=== PATIENT | male | born 1955 | race Caucasian/White ===

== ENCOUNTER 2016-12-25 03:07 | Inpatient (IN) | payer OTHER ==
--- NOTE | ~2016-12-25 | PA ---
Unit #: [id number] #: [id number] Patient: CALIN HAMLIN [id number] [facility] [address] [place] [address] [id number] MR#: [id number] NAME: CALIN HAMLIN ROOM: P261 Age: 61 Sex: M Admission Date: 12/25/2016 : 1955 Date of Assessment: 12/25/2016 Attending Physician: Arlyn Wetzel M.D. Admitting Physician: Arlyn Weztel M.D. Primary Care Physician: Primary Care Physician No PSYCHIATRIC ASSESSMENT DATE OF SERVICE 12/25/2016. IDENTIFYING DATA Mr. Hamlin is a 61-year-old white male, who is resident of [place], [place], and was transferred to from [facility] and was accompanied by his sister, Irina Hamlin, was initially taken to the [facility] in [place], [place]. CHIEF COMPLAINT Suicidal thoughts. HISTORY OF PRESENT ILLNESS Mr. Hamlin is a 61-year-old white male, who was transferred to us from the [facility], where he presented with suicidal thoughts that has worsened over the past 2 days and stated that he has chronic back pain, long history of depression, and stated that just moved from [facility] 3 months ago and stated that he is currently from his , stated that he found out daughter was recently diagnosed with cancer that he feels hopeless and does report increasing depression, anxiety, irritability, restlessness, feelings of hopelessness and helplessness, and suicidal ideations with a plan to overdose. SUBSTANCE ABUSE HISTORY The patient reports history of opioid, alcohol, and sedative abuse, and apparently has been getting some prescriptions for benzodiazepines as well. PAST PSYCHIATRIC HISTORY The patient has had history of inpatient psychiatric hospitalization in [place] as well as at the [facility] and has been diagnosed and treated for mood disorder. He is currently on combination of psychotropic medication, but does not appear to be showing a therapeutic response to the medication. PAST MEDICAL HISTORY Chronic back pain. ALLERGIES No known medication allergies. PERSONAL AND SOCIAL HISTORY A 61-year-old white male, who reports that he is and unemployed and recently moved to [place] from [facility] and reports having fairly decent social support system. Unit #: [id number] #: [id number] Patient: CALIN HAMLIN MENTAL STATUS EXAMINATION Middle-aged white male who was casually dressed with fair personal hygiene, appears to be in no acute distress or discomfort. He was awake and alert on interaction with intact orientation to time, place, and person. His mood was anxious and depressed with a congruent affect. His speech was slow and goal directed. His thought processes were disorganized with some looseness of associations and flight of ideas and suicidal ideations. His insight and judgment remain significantly impaired. DIAGNOSTIC IMPRESSION Psychiatric: Major depressive disorder, recurrent, moderate, without psychotic features. Medical: Chronic back pain. Stressors: Moderate psychosocial stressors. TREATMENT PLAN 1. The patient has presented with history of mood disorder and has been decompensating and will need inpatient hospitalization for safety and stabilization. We will start him back on his home medications. We will adjust the medications and monitor response and we will monitor his response and make further adjustments as needed. 2. Supportive therapy was provided to the patient. 3. Safe, structured, and nourishing environment will be provided. ESTIMATED LENGTH OF STAY 5 to 7 days. ABILITY TO HELP SELF Limited. WILLINGNESS TO HELP SELF The patient appears to be willing to help self. STRENGTHS 1. Communicative. 2. Cooperative. PROBLEMS 1. Chronic dysphoric symptoms. 2. Poor social support system. DISCHARGE CRITERIA This will be contingent upon the patient's ability to show resolution of his depression and anxiety and his ability to stay safe to himself, particularly after discharge from the hospital. Dictated by... Macie Santoro/nazia TD: 12/25/2016 08:39 JOB #: [id number] Unit #: [id number] #: [id number] Patient: CALIN HAMLIN PSYCHIATRIC ASSESSMENT X Arlyn Wetzel MD X PSYCHIATRIC ASSESSMENT
--- NOTE | ~2016-12-25 | PN ---
Unit #: [id number] #: [id number] Patient: CALNI HAMLIN [id number] [facility] [address] [place] [address] [id number] MR#: [id number] NAME: CALIN HAMLIN [facility]OM: [facility] Age: 61 Sex: M Admission Date: 12/25/2016 : 1955 Attending Physician: Arlyn Wetzel M.D. Admitting Physician: Arlyn Wetzel M.D. Primary Care Physician: Primary Care Physician Fabi DILLON PROGRESS NOTES DATE OF SERVICE: 12/27/2016 SUBJECTIVE Mr. Hamlin is a 61-year-old white male who was seen today and chart was reviewed, and case was discussed with the staff. He has been anxious, withdrawn, though has not shown any agitation or irritability and has been cooperative with treatment recommendations as he has been taking the medications and tolerating them fairly well with no reported side effects. MENTAL STATUS EXAMINATION Middle-aged white male who was casually dressed with fair personal hygiene, appears to be in no acute distress or discomfort. He was awake and alert on interaction with intact orientation. His mood was anxious with a congruent affect. His speech was slow and goal directed. He denies any suicidal or homicidal ideations. His insight and judgment remain slightly impaired. TREATMENT PLAN 1. We will continue him on his current medications and treatment protocol. We will monitor his response to medications and make further adjustments as needed. 2. We will continue to follow up. Dictated by... Macie Santoro/nazia TD: 12/28/2016 07:07 JOB #: [id number] [facility] PROGRESS NOTES X Arlyn Wetzel MD PROGRESS NOTE
--- NOTE | ~2016-12-25 | PN ---
Unit #: [id number] #: [id number] Patient: CALIN HAMLIN [id number] [facility] [address] [place] [address] [id number] I MR#: [id number] NAME: CALIN HAMLIN ROOM: [facility] Age: 61 Sex: M Admission Date: 12/25/2016 : 1955 Attending Physician: Arlyn Wetzel M.D. Admitting Physician: Arlyn Wetzel M.D. Primary Care Physician: Primary Care Physician Fabi HINTON NOTES DATE OF SERVICE: 12/26/2016 SUBJECTIVE Mr. Hamlin is a 61-year-old white male who was seen today and chart was reviewed and case was discussed with the staff. He has been anxious, withdrawn, though has not shown any agitation or irritability and has been cooperative with treatment recommendation as he has been taking the medications and tolerating them fairly well. MENTAL STATUS EXAMINATION An elderly white male who was casually dressed with fair personal hygiene and appears to be in no acute distress or discomfort. He was awake and alert on interaction with intact orientation. His mood was anxious with a congruent affect. He denies any suicidal or homicidal ideations, and also denies any auditory or visual hallucinations. His insight and judgment remain slightly impaired. TREATMENT PLAN 1. We will continue him on his current medications and treatment protocol. We will monitor his response and make further adjustments as needed. 2. We will continue to follow up. Dictated by... Macie Santoro/nazia TD: 12/27/2016 05:13 JOB #: [id number] [facility] PROGRESS NOTES X Arlyn Wetzel MD PROGRESS NOTE
--- NOTE | ~2016-12-25 | HP ---
Unit #: [id number] #: [id number] Patient: AVERY JOYCE [id number] [place] [address] [id number] I MR#: [id number] NAME: AVERY JOYCE ROOM: [facility] Age: 61 Sex: M Admission Date: 12/25/2016 : 1955 Attending Physician: Arlyn Wetzel M.D. Admitting Physician: Arlyn Wetzel M.D. Primary Care Physician: Primary Care Physician No HISTORY AND PHYSICAL HISTORY OF PRESENT ILLNESS Avery is a 61 year old admitted to 2 [facility] with depression and verbalizing wanting to hurt himself. PAST MEDICAL HISTORY 1. Obesity 2. Degenerative disc disease a. Chronic pain. 3. History of polysubstance abuse PAST SURGICAL HISTORY Low back pain ALLERGIES No known drug allergies. SOCIAL HISTORY He does not smoke. Has a history of alcohol abuse. Denies anything currently. He also gives a history of poly illicit substance abuse. FAMILY HISTORY Medically noncontributory. REVIEW OF SYSTEMS He does not answer all questions appropriately. There are no reports of nausea, vomiting or diarrhea. He has had no cough or increased temperature. CURRENT MEDICATIONS 1. Cymbalta 60 mg daily 2. BuSpar 10 mg daily 3. Seroquel 100 mg daily 4. Xifaxan 550 mg b.i.d. 5. Thorazine p.r.n. 6. Vistaril 50 mg t.i.d. 7. Lactulose 20 grams q.i.d. 8. Milk of Magnesia p.r.n. 9. Maalox p.r.n. 10. Tylenol p.r.n. PHYSICAL EXAMINATION GENERAL: Alert, well-nourished, in no apparent distress. Unit #: [id number] #: [id number] Patient: AVERY JOYCE VITAL SIGNS: Blood pressure 146/100, heart rate 100, respirations 16, temperature 98.6. WEIGHT: 245 pounds. HEIGHT: 5'9". SKIN: Warm and dry without rash or lesion. HEENT: Normocephalic. TMs not viewed. Oral and nasal passages clear. Conjunctivae clear. Pupils equal, round and reactive to light and accommodation. Extraocular movements intact. NECK: Supple without lymphadenopathy or thyromegaly. HEART: Regular rate and rhythm without murmur. LUNGS: Clear. ABDOMEN: Soft, nontender. : Not done. EXTREMITIES: No evidence of cyanosis, clubbing or edema. Moves all extremities without focal deficit. NEUROLOGICAL: Grossly within normal limits. Cranial Nerves: II: Visual mcqueen are intact. III, IV AND : Extraocular movements are intact. Pupils are equal, round and reactive to light. V: Facial sensation is grossly normal. VII: Facial movements and expression are normal. VIII: Auditory acuity grossly intact. IX, X: Uvula is midline. Phonation is normal. XI: Patient shrugs shoulders and turns head normally. XII: Tongue protrudes in the midline. Sensory and Motor Function: Sensory and motor sensation is grossly normal. Motor: moves all extremities well. Coordination: Gait is normal. Deep Tendon Reflexes: Intact. IMPRESSION 1. Psychiatric admission 2. High blood pressure on admission although he gives no prior history. He is admitted on no blood pressure medication. RECOMMENDATIONS PSYCHIATRIC: Per psychiatrist. MEDICAL: 1. I see no contraindications to participating in facility's activities. 2. Monitor blood pressure q shift. If remains high we will need to address. MEDICAL PROGNOSIS Good. MEDICAL CONDITION Stable. Dictated by... Jose SloanAGabriele-Gabe. for Macie Gallardo/rajesh TD: 12/26/2016 00:04 JOB #: [id number] Unit #: [id number] #: [id number] Patient: AVERY JOYCE HISTORY AND PHYSICAL X Tennille Zimmerman X HISTORY AND PHYSICAL
--- NOTE | ~2016-12-25 | DS ---
Unit #: [id number] #: [id number] Patient: CALIN HAMLIN [id number] [facility] [address] [place] [address] [id number] MR#: [id number] NAME: CALIN HAMLIN ROOM: [facility] Age: 61 Sex: M Admission Date: 12/25/2016 : 1955 Discharge Date: 12/28/2016 Attending Physician: Arlyn Wetzel M.D. Primary Care Physician: Primary Care Physician No DISCHARGE SUMMARY IDENTIFYING DATA Mr. Hamlin is a 61-year-old white male, who is a resident of [place], [place], and was transferred to from [facility]. DISCHARGE DIAGNOSES Psychiatric: Major depressive disorder, recurrent, moderate, without psychotic features. Medical: Chronic back pain. Stressors: Moderate psychosocial stressors. HISTORY OF PRESENT ILLNESS Please see initial psychiatric evaluation for details. PAST PSYCHIATRIC HISTORY Please see initial psychiatric evaluation for details. PAST MEDICAL HISTORY Please see initial psychiatric evaluation for details. HOSPITAL COURSE The patient [facility] and was oriented to the hospital environment. Routine p.r.n. medications were initiated, and he was started back on his home medications including his Cymbalta and Abilify. The Abilify was switched to Seroquel 100 mg at bedtime, and BuSpar and Cymbalta were maintained and he was closely monitored. He was taking the medications regularly and was tolerating them fairly well and was able to show a decent and therapeutic response, and as such, it was decided that he will be discharged home and will continue treatment on an outpatient basis. DISCHARGE MEDICATIONS Cymbalta 60 mg b.i.d. for depression, BuSpar 10 mg b.i.d. for anxiety, and Seroquel 100 mg at bedtime for anxiety. DISCHARGE CONDITION Stable. PROGNOSIS Fair. Dictated by... Arlyn Wetzel M.D. Unit #: [id number] #: [id number] Patient: CALIN HAMLIN IAA/modl TD: 12/28/2016 20:04 JOB #: [id number] DISCHARGE SUMMARY X Arlyn Wetzel MD DISCHARGE SUMMARY
== END 2016-12-28 16:02 | disposition home or self-care (01) | DRG 885 ==
LOC: P2L 03:07
DX: F33.1 Major depressive disorder, recurrent, moderate (principal); E66.9 Obesity, unspecified; M54.9 Dorsalgia, unspecified; G89.29 Other chronic pain